=== PATIENT | male | born 1945 | race Caucasian/White ===

== ENCOUNTER 2017-05-29 06:12 | Day surgery (SDC) | payer OTHER ==
[2017-05-28 10:54] VITALS: BMI 22.8
[2017-05-29] MEDS: TROPICAMIDE 1% OPHTH SOLN 15 ML BOTTLE ONE ×4 (06:55→07:10)
[2017-05-29] MEDS: GENTAMICIN SULFATE 0.3% OPHTHALMIC (EYE DROPS) 5ML BOTTLE ONE ×4 (06:55→07:10)
[2017-05-29] MEDS: KETOROLAC TROMETHAMINE 0.5% 5 ML BOTTLE OPTHALMIC ONE ×4 (06:55→07:10)
[2017-05-29] MEDS: CYCLOPENTOLATE HCL 1% OPHTH SOLN 2 ML BOTTLE ONE ×4 (06:55→07:10)
[2017-05-29] MEDS: PHENYLEPHRINE 2.5% OPHTH SOLN 15 ML BOTTLE ONE ×4 (06:55→07:10)
[2017-05-29] MEDS ORDERED: BETAXOLOL HCL 0.25% OPHTHALMIC 10 ML DROPSBTL ONE (07:20)
[2017-05-29] MEDS ORDERED: BACITRACIN/POLYMYXIN OPH OINT 3.5 GM TUBE ONE (07:20)
[2017-05-29] MEDS ORDERED: TETRACAINE 0.5% OPHTH SOLN 2 ML BOTTLE ONE (07:21)
[2017-05-29] MEDS ORDERED: ACETYLCHOLINE 1:100 INTRA-OCUL 20 MG/2 ML KIT ONE (07:21)
[2017-05-29] MEDS ORDERED: LIDOCAINE HCL/PF 2% SDV 5ML VIAL ONE (07:21)
[2017-05-29] MEDS ORDERED: BUPIVACAINE HCL/PF 0.5% (5MG/ML) 10 ML VIAL ONE (07:21)
[2017-05-29] MEDS ORDERED: BSS (NA/CA/MG/K) BALANCED SALT SOLUTION OPHTH SOLN 15 ML BOTTLE ONE (07:21)
[2017-05-29] MEDS ORDERED: LIDOCAINE HCL 2% JELLY 10 ML CARTRIDGE ONE (07:21)
[2017-05-29] MEDS ORDERED: NEO/POLYMYX B SULF/DEXAMETH OPHTHALMIC 5ML BOTTLE ONE (07:22)
[2017-05-29] MEDS ORDERED: CARBACHOL 0.01% INTRA-OCULAR 1.5 ML VIAL ONE (07:22)
[2017-05-29] MEDS ORDERED: EPINEPHrine/PF 1 MG/1 ML (1:1,000) AMPULE ONE (07:25)
[2017-05-29] MEDS ORDERED: DEXAMETHASONE SOD PHOSPHATE 4 MG/1 ML VIAL ONE (07:33)
[2017-05-29] MEDS ORDERED: LIDOCAINE 1% P/F 10 MG/ML VIAL ONE (07:34)
[2017-05-29] MEDS ORDERED: KETOROLAC TROMETHAMINE 30 MG/1 ML VIAL ONE (07:34)
[2017-05-29] MEDS ORDERED: ONDANSETRON 4 MG/2 ML VIAL ONE (07:34)
[2017-05-29] MEDS ORDERED: MIDAZOLAM HCL 2 MG/2 ML SINGLE DOSE VIAL ONE (07:34)
[2017-05-29] MEDS ORDERED: LIDOCAINE 1%/EPI 1:100000 (20 ML MULTI DOSE VIAL) ONE (07:44)
[2017-05-29] MEDS ORDERED: PROPOFOL 20 ML ONE (07:52)
[2017-05-29] MEDS ORDERED: POVIDONE-IODINE 5% OPHTHALMIC PREP 30 ML SOLUTION ONE (07:54)
[2017-05-29] MEDS ORDERED: ACETAMINOPHEN 325 MG TABLET (FP) PO PRN (09:12)
[2017-05-29 09:33] VITALS: PULSE 60; TEMP 97.2
--- NOTE | 2017-05-29 09:56 | OP ---
DATE OF OPERATION: 05/29/2017 TITLE OF PROCEDURE: Planned extracapsular cataract extraction, phacoemulsification, insertion of posterior chamber lens implant in the left eye. PRIMARY SURGEON: Chaim Rodriguez MD PRINCIPAL SECURITY ARCHITECT SURGEON: Chaim Rodriguez MD ANESTHESIA: Local with standby. ANESTHESIOLOGIST: Lewis Montez MD COMPLICATIONS: None. PREOPERATIVE DIAGNOSIS: Cataract of the left eye. POSTOPERATIVE DIAGNOSIS: Cataract of the left eye, with iris prolapse. FINDINGS OF THE PROCEDURE: After successful peribulbar anesthesia was given to the left eye, patient was prepped and draped in the usual manner to expose the left eye. Lid speculum and Tegaderm strips were inserted, the microscope brought into position over the eye. Attention was then focused to the temporal area where a 2.4-mm incision was performed as well as 15-degree blade used to do an inferior incision. Viscoat was injected into the anterior capsule, and upon doing that, iris prolapsed out and it was successfully reposited with Viscoat. Then capsulotomy was performed without complication with Utrata forceps followed by hydrodissection followed by [id number] technique phacoemulsification of the nucleus without complication, followed by irrigation/aspiration of all cortical material, and this was then followed by Provisc into the posterior chamber. The posterior capsule was intact, red reflex present. Then the implant was inspected carefully, found to be free of defects, debris, and flaws. It was folded, placed in the Provisc-filled cartridge. The cartridge then the injector and injected into the eye such that the inferior haptics were placed in the inferior capsular bag nasally and temporally in the posterior chamber. The Provisc was aspirated out and replaced with Miochol, Miostat, and BSS, and the wound was closed with single interrupted 2-0 Ethilon at the main incision site. At this point the implant was fixated in the capsular bag, , pupil intact, posterior capsule and red reflex present. Topical Betoptic S and Maxitrol ophthalmic suspensions were placed, as was Bacitracin ophthalmic ointment. The Tegaderm strips and lid speculum were removed from the lids. The lids were closed and patch and shield placed on the eye, and patient was then discharged from the operating room to the recovery area in good condition, having tolerated the procedure well. CHAIM RODRIGUEZ M.D. [facility]/[id number]
[2017-05-29 10:01] VITALS: BP 127/66
--- NOTE | 2017-05-29 18:25 | EKG ---
Test Reason : Blood Pressure : / mmHG Vent. Rate : 060 BPM Atrial Rate : 060 BPM P-R Int : 188 ms QRS Dur : 126 ms QT Int : 450 ms P-R-T Axes : 011 -33 030 degrees QTc Int : 450 ms AV dual-paced rhythm BASELINE ARTIFACT NO PREVIOUS ECGS AVAILABLE REPEAT EKG IF CLINICALLY INDICATED Confirmed by NIRMALA NOLAN MD ([id number]) on 05/29/2017 6:24:35 PM Referred By: Pb Shelton Confirmed By:NIRMALA NOLAN MD
== END 2017-05-29 10:00 | disposition home or self-care (01) ==
LOC: FASU 06:12
PROVIDERS: ATTEND Ophthalmology
PROC: 08RK3JZ Replacement of Left Lens with Synthetic Substitute, Percutaneous Approach (ICD-10-PCS; principal; 2017-05-29 07:47)
DX: H26.9 Unspecified cataract (principal); H21.89 Other specified disorders of iris and ciliary body
CPT/HCPCS: 93005

== ENCOUNTER 2017-08-07 08:43 | Day surgery (SDC) | payer OTHER ==
[2017-07-31 12:55] VITALS: BMI 22.1
[2017-08-07] MEDS: GENTAMICIN SULFATE 0.3% OPHTHALMIC (EYE DROPS) 5ML BOTTLE ONE ×5 (09:10→09:30)
[2017-08-07] MEDS: PHENYLEPHRINE 2.5% OPHTH SOLN 15 ML BOTTLE ONE ×5 (09:10→09:30)
[2017-08-07] MEDS: CYCLOPENTOLATE HCL 1% OPHTH SOLN 2 ML BOTTLE ONE ×5 (09:10→09:30)
[2017-08-07] MEDS: KETOROLAC TROMETHAMINE 0.5% 5 ML BOTTLE OPTHALMIC ONE ×5 (09:10→09:30)
[2017-08-07] MEDS: TROPICAMIDE 1% OPHTH SOLN 15 ML BOTTLE ONE ×5 (09:10→09:30)
[2017-08-07] MEDS ORDERED: CHONDROITIN SU A/HYALUR SOD 1 KIT IO ONE ×2 (09:36)
[2017-08-07] MEDS ORDERED: EPINEPHrine 1:1,000 1 MG/1 ML - 30ML VIAL (INJECTION) SQ ONE (09:36)
[2017-08-07] MEDS ORDERED: ACETYLCHOLINE 1:100 INTRA-OCUL 20 MG/2 ML KIT IO ONE (09:36)
[2017-08-07] MEDS ORDERED: NEO/POLYMYX B SULF/DEXAMETH OPHTHALMIC 5ML BOTTLE ONE (09:46)
[2017-08-07] MEDS ORDERED: LIDOCAINE HCL/EPINEPHRINE/PF 20 ML VIAL ONE (09:46)
[2017-08-07] MEDS ORDERED: BUPIVACAINE HCL/PF 0.5% (5MG/ML) 10 ML VIAL ONE (09:46)
[2017-08-07] MEDS ORDERED: BETAXOLOL HCL 0.25% OPHTHALMIC 10 ML DROPSBTL ONE (09:46)
[2017-08-07] MEDS ORDERED: POVIDONE-IODINE 5% OPHTHALMIC PREP 30 ML SOLUTION ONE (09:46)
[2017-08-07] MEDS ORDERED: BACITRACIN/POLYMYXIN OPH OINT 3.5 GM TUBE ONE (09:46)
[2017-08-07] MEDS ORDERED: TETRACAINE 0.5% OPHTH SOLN 2 ML BOTTLE ONE (09:46)
[2017-08-07] MEDS ORDERED: EPINEPHrine/PF 1 MG/1 ML (1:1,000) AMPULE ONE (09:47)
[2017-08-07] MEDS ORDERED: MIDAZOLAM HCL 2 MG/2 ML SINGLE DOSE VIAL ONE (09:54)
[2017-08-07] MEDS ORDERED: ACETAMINOPHEN 325 MG TABLET (FP) PO PRN ×2 (09:56→09:57)
[2017-08-07] MEDS ORDERED: BUPIVACAINE HCL/PF 0.5% (5MG/ML) 10 ML VIAL IJ ONE (10:18)
[2017-08-07] MEDS ORDERED: LIDO 2%/EPI 1:200000 PRESRVFRE (20 ML SDVIAL) INF ONE (10:18)
[2017-08-07] MEDS ORDERED: TETRACAINE 0.5% OPHTH SOLN 2 ML BOTTLE OD ONE (10:22)
[2017-08-07] MEDS ORDERED: POVIDONE-IODINE 5% OPHTHALMIC PREP 30 ML SOLUTION OD ONE (10:30)
[2017-08-07] MEDS ORDERED: BETAXOLOL HCL 0.25% OPHTHALMIC 10 ML DROPSBTL OD ONE (11:05)
[2017-08-07] MEDS ORDERED: NEO/POLYMYX B SULF/DEXAMETH OPHTHALMIC 5ML BOTTLE OD ONE (11:05)
[2017-08-07] MEDS ORDERED: BACITRACIN/POLYMYXIN OPH OINT 3.5 GM TUBE OD ONE (11:05)
[2017-08-07 11:22] VITALS: TEMP 98.1
[2017-08-07 11:47] VITALS: BP 125/74; PULSE 59
--- NOTE | 2017-08-07 12:32 | OP ---
DATE OF OPERATION: 08/07/2017 PREOPERATIVE DIAGNOSIS: Cataract, right eye. POSTOPERATIVE DIAGNOSIS: Cataract, right eye. PROCEDURE: Cataract extraction via phacoemulsification with insertion of posterior chamber lens implant, right eye. SURGEON: Chaim Rodriguez MD DIGITAL MEDIA PLANNER: Chaim Rodriguez MD ANESTHESIA: Regional with sedation. ESTIMATED BLOOD LOSS: Less than 1 mL. SPECIMENS: None. COMPLICATIONS: None. DESCRIPTION OF PROCEDURE: The patient was identified in the holding area. After all risks, benefits, and alternatives were explained to the patient, informed consent was obtained. The right eye was marked with a marking pen. The patient then entered the operating room on an eye stretcher. After a formal time-out was performed, a 3-mL injection of equal parts 2% lidocaine with epinephrine and 0.5% Marcaine was given around the right eye. An eyelid speculum was placed beneath the eyelids of the right eye, after the right eye was prepped and draped in the usual sterile fashion. A superotemporal paracentesis incision was created using a 15-degree blade. Viscoelastic was injected into the anterior chamber. A 2.4-mm keratome blade was then used to make a inferotemporal incision. A 360-degree continuous curvilinear capsulorrhexis was then created using bent cystotome and Utrata forceps. Hydrodissection was performed using balanced saline solution on a cannula. Phacoemulsification was introduced to disassemble and remove the nucleus in its entirety. Irrigation/aspiration was then used to remove any remaining cortical material from the eye. The capsular bag was reformed using viscoelastic. An Garfield model [id number] with a power of 25.5 diopters, serial number [id number], was inspected and found to be defect-free and injected into the capsular bag. Irrigation/aspiration was used to remove any remaining viscoelastic from the eye. The anterior chamber was reformed using balanced saline solution. Intracameral injection of Miochol and Miostat were then administered, and the pupil came down and was round. All wounds were hydrated with balanced saline solution, noted to be watertight. The anterior chamber was deep. The eye had an adequate pressure. The lens was perfectly centered in the capsular bag, and there was a red reflex present. Topical antibiotic eye drops and ointment were then administered to the right eye. The eyelid speculum was removed from the right eye. The right eye was patched and shielded. The patient tolerated the procedure well and left the operating room in stable condition to follow up in the eye clinic tomorrow morning at 9:00. CHAIM RODRIGUEZ M.D. [id number]
== END 2017-08-07 11:50 | disposition home or self-care (01) ==
LOC: FASU 08:43
PROVIDERS: ATTEND Ophthalmology
PROC: 08RJ3JZ Replacement of Right Lens with Synthetic Substitute, Percutaneous Approach (ICD-10-PCS; principal; 2017-08-07 09:30)
DX: H26.9 Unspecified cataract (principal)